=== PATIENT | female | born 1970 ===

== ENCOUNTER 2018-05-13 09:26 | Day surgery (SDC) | payer OTHER ==
[2015-08-23 08:29] VITALS: BMI 26.0
[2018-05-13 10:00] VITALS: O2SAT 100
--- NOTE | 2018-05-13 10:57 | CP.SDSHP ---
Same Day Surgery H & P - History Proposed Procedure: COLONSCOPY Pre-Op Diagnosis: SEE NOTES - Previous Medical/Surgical History Misc: Other Pain: 4.Moderate Pain Previous Surgical History: WIP. SX. , HYSTRECTOMY - Allergies Allergies: Allergies No Known Allergies Allergy (Verified 08/23/15 08:29) - Physical Exam General Appearance: N Vital Signs: Vital Signs 05/13/18 09:51 Temperature 98.9 F Pulse Rate 74 Respiratory 18 Rate Blood Pressure 101/42 L O2 Sat by Pulse 100 Oximetry Mental Status: Alert & Oriented x3 Neuro: WNL Heart: WNL Lungs: WNL GI: Other - {Optional Preform as Required} Breast: WNL Abdomen: Other Rectal: Other Integument: WNL : WNL Ortho: WNL ENT: WNL - Impression Pt. Evaluated Today:Candidate for Anesthesia & Procedure: Yes - Date & Time Time: 10:56 Short Stay Discharge - Short Stay Discharge Admitting Diagnosis/Reason for Visit: DIARRHEA Disposition: HOME/ ROUTINE
[2018-05-13] MEDS ORDERED: Belladonna-Phenobarbital PO ONE (10:58)
[2018-05-13] MEDS ORDERED: Propofol 10 mg/ml Inj (20 ML) ONE (11:02)
[2018-05-13] MEDS ORDERED: Midazolam 2 MG/2 ML VIAL ONE (11:02)
[2018-05-13 11:22] VITALS: TEMP 99.6
[2018-05-13 11:53] VITALS: RESP 12
[2018-05-13 14:08] VITALS: BP 109/60; PULSE 73
== END 2018-05-13 14:06 | disposition home or self-care (01) ==
LOC: C.ENDO 09:26
PROVIDERS: ATTEND Specialist
DX: K64.8 Other hemorrhoids (principal); K64.4 Residual hemorrhoidal skin tags; R19.7 Diarrhea, unspecified; R10.13 Epigastric pain
CPT/HCPCS: 45378; J2250; J2704

== ENCOUNTER 2018-06-02 07:37 | Day surgery (SDC) | payer OTHER ==
[2018-06-02 08:59] VITALS: BMI 20.9
[2018-06-02 09:21] VITALS: O2SAT 100
[2018-06-02] MEDS ORDERED: Propofol 10 mg/ml Inj (20 ML) ONE (10:00)
[2018-06-02] MEDS ORDERED: Lidocaine Hydrochloride 5 ML INJ ONE (10:00)
--- NOTE | 2018-06-02 10:03 | CP.SDSHP ---
Same Day Surgery H & P - History Proposed Procedure: COLONSCOPY Pre-Op Diagnosis: SEE NOTES - Previous Medical/Surgical History Misc: Other Pain: 4.Moderate Pain - Allergies Allergies: Allergies No Known Allergies Allergy (Verified 06/02/18 08:58) - Physical Exam General Appearance: N Vital Signs: Vital Signs 06/02/18 06/02/18 09:05 09:33 Temperature 98 F Pulse Rate 73 73 Respiratory 20 Rate Blood Pressure 98/57 L O2 Sat by Pulse 100 Oximetry Mental Status: Alert & Oriented x3 Neuro: WNL Heart: WNL Lungs: WNL GI: Other - {Optional Preform as Required} Breast: WNL Abdomen: Other Rectal: Other Integument: WNL : WNL Ortho: WNL ENT: WNL - Impression Pt. Evaluated Today:Candidate for Anesthesia & Procedure: Yes - Date & Time Time: 10:03 Short Stay Discharge - Short Stay Discharge Admitting Diagnosis/Reason for Visit: GASTRIC CA, DYSPEPSIA Disposition: HOME/ ROUTINE
[2018-06-02] MEDS ORDERED: Belladonna-Phenobarbital PO ONE (11:00)
[2018-06-02 13:07] VITALS: BP 101/61; PULSE 77; RESP 21; TEMP 98.1
== END 2018-06-02 11:45 | disposition home or self-care (01) ==
LOC: C.ENDO 07:37
PROVIDERS: ATTEND Specialist
DX: K58.0 Irritable bowel syndrome with diarrhea (principal); K57.30 Diverticulosis of large intestine without perforation or abscess without bleeding; K52.9 Noninfective gastroenteritis and colitis, unspecified; K66.0 Peritoneal adhesions (postprocedural) (postinfection)
CPT/HCPCS: 45380; 88305; J2704